=== PATIENT | male | born 1980 | race Caucasian/White ===

== ENCOUNTER 2017-11-28 23:23 | Emergency (ER) | payer OTHER ==
[~2017-11-28] VITALS: Ht 188 cm; Wt 133.3 kg
[~2017-11-28 23:23] MED LIST: AMOXICILLIN500 MG PO; Bentyl PO; CARAFATE1 GM PO; CIPRO HC OTIC S10 ML LEFT EAR; Carafate PO; Flagyl PO; HYDROCODON-ACE1 EAC7 PO; Levaquin PO; MOTRIN800 MG PO; NOHOMEMEDS; OMEPRAZOLE40 M1 PO; PEN-VEE K,VEET500 MG PO; PERCOCET 5/31 TABLET PO; PRILOSEC20 MG PO; PROMETHAZINE HC25 M1 PO; PROTONIX40 MG PO; Protonix PO; TRAMADOL HCL50 MG PO; TYLENOL REGULA325 MG PO; Ultram PO; ZOFRAN ODT4 MG PO; ZOFRAN4 MG PO; no home meds
[2017-11-29 01:00] VITALS: BP 161/87
== END 2017-11-29 01:12 | disposition home or self-care (01) ==
LOC: EME 23:23
PROC: 3E0234Z Introduction of Serum, Toxoid and Vaccine into Muscle, Percutaneous Approach (ICD-10-PCS; principal; 2017-11-28)
DX: S61.412A Laceration without foreign body of left hand, initial encounter (principal); W45.8XXA Other foreign body or object entering through skin, initial encounter; Y99.0 Civilian activity done for income or pay; Z23 Encounter for immunization; F17.200 Nicotine dependence, unspecified, uncomplicated